=== PATIENT | male | born 1980 | race Asian ===

== ENCOUNTER → 2020-08-19 | Emergency (ER) | payer MEDICAID ==
[~2020-08-19] VITALS: Ht 177.8 cm; Wt 81.6 kg
[~2020-08-19] MED LIST: ACETAMINOPHEN 325 MG TABLET PO ONE; ACETAMINOPHEN ES 500 MG TABLET ONE
--- NOTE | 2020-08-19 17:10 | NUR ---
PT BIB SELF C/O COUGH AND FEVER FOR 1 WEEK. PT IS AAOX4, NOT IN RESPIRATORY DISTRESS, HOOKED TO [employer], KEPT RESTED AND COMFORTABLE. WILL CONTINUE TO MONITOR.
[2020-08-19 17:21] VITALS: BP 134/88
--- NOTE | 2020-08-19 17:38 | NUR ---
BACK TO HIS CAR TO WAIT FOR ISO ROOM, CELL # [phone]
--- NOTE | 2020-08-19 19:00 | NUR ---
COVID SPECIMEN AND INFLUENZA OBTAINED AND SENT TO LAB.
--- NOTE | 2020-08-19 19:07 | NUR ---
ENGINEER AT SITE FOR XRAY.
--- NOTE | 2020-08-21 10:32 | NUR ---
PATIENT CALLED FOR POSITIVE COVID RESULT, INSTRUCTED TO QUARANTINE X14 DAYS.
== END | disposition home or self-care (01) ==
LOC: ER 16:03
DX: U07.1 COVID-19 (principal); R19.7 Diarrhea, unspecified; R03.0 Elevated blood-pressure reading, without diagnosis of hypertension
CPT/HCPCS: 71045; 87804; 99284; C9803; U0003

== ENCOUNTER 2020-11-08 14:32 | Emergency (ER) | payer MEDICAID ==
[~2020-11-08] VITALS: Ht 177.8 cm; Wt 81.6 kg
--- NOTE | 2020-11-08 14:45 | NUR ---
PATIENT SELF PRESENTS TO ED FOR C/O LEFT FLANK PAIN THIS AM - N/V/D. THE PATIENT IS IN ER BED #9. AAO X4. IN ROOM AIR AND DENIES SOB. RESPIRATION REGULAR AND UNLABORED. NO VOMITING AT THIS TIME. WILL CONTINUE TO MONITOR THE PATIENT.
[2020-11-08] MEDS ORDERED: KETOROLAC TROMETHAMINE 15 MG/ML VIAL ONE (14:54)
[2020-11-08] MEDS ORDERED: ONDANSETRON HCL/PF 4 MG/2 ML VIAL ONE (14:55)
[2020-11-08] MEDS ORDERED: MORPHINE SULFATE INJ 4 MG/ML DISP.SYRIN ONE (14:55)
[2020-11-08] MEDS ORDERED: IV NS 0.9% 1,000 ML BAG IV ONE (15:00)
[2020-11-08] MEDS ORDERED: KETOROLAC TROMETHAMINE INJ 30 MG/ML VIAL IV ONE (15:00)
[2020-11-08] MEDS ORDERED: MORPHINE SULFATE INJ 2 MG/ML DISP.SYRIN IV ONE (15:00)
[2020-11-08] MEDS ORDERED: ONDANSETRON HCL/PF 4 MG/2 ML VIAL IVP ONE (15:00)
--- NOTE | 2020-11-08 15:00 | NUR ---
STARTED LAC G 18, BLODD DRAW DONE AND THE SPECIMEN PICKED UP BY PHLEBATOMIST.
[2020-11-08 15:13] LABS: RED BLOOD CELL COUNT(AUTO) 5.04 MIL/uL (4.5-6.0)
--- NOTE | 2020-11-08 15:15 | NUR ---
Patient taken on a gurney to CT.
[2020-11-08 15:18] LABS: BASOPHILS # (AUTO) 0.1 /CMM (0.0-0.2); BASOPHILS % (AUTO) 0.6 % (0.0-2.0); EOSINOPHILS % (AUTO) 0.1 % (0.0-6.0); HEMATOCRIT 46 % (39-51); HEMOGLOBIN 15.4 g/dL (13.5-17.5); LYMPHOCYTES # (AUTO) 0.9 /CMM (0.8-4.8); LYMPHOCYTES % (AUTO) 9.8 % (20.0-44.0); MEAN CORPUSCULAR HGB CONC 34 g/dl (31.0-36.0); MEAN CORPUSCULAR VOLUME 90 fL (80-96); MONOCYTES # (AUTO) 0.4 /CMM (0.1-1.30); MONOCYTES % (AUTO) 3.9 % (2.0-12.0); NEUTROPHILS # (AUTO) 8.1 /CMM (1.8-8.9); NEUTROPHILS % (AUTO) 85.6 % (43.0-81.0); PLATELET COUNT (AUTO) 164 /CMM (150-450); WHITE BLOOD COUNT (AUTO) 9.5 K/uL (4.3-11.0)
[2020-11-08 15:19] LABS: BILIRUBIN,URINE NEGATIVE (NEGATIVE); COLOR,URINE YELLOW (YELLOW); LEUKOCYTE ESTERASE ,URINE NEGATIVE (NEGATIVE); NITRITE, URINE NEGATIVE (NEGATIVE); PH,URINE 5.5 (5.0-8.0); PROTEIN,URINE NEGATIVE (NEGATIVE); UGLUCOSE NEGATIVE (NEGATIVE); UROBILINOGEN,URINE 0.2 EU/dL (0.2)
--- NOTE | 2020-11-08 15:25 | NUR ---
PATIENT REFUSED MORPHINE PAIN MEDICATION.
[2020-11-08 15:26] LABS: BACTERIA,URINE None seen /HPF (None Seen); RBC,URINE 21-50 /HPF (0-2); SQUAMOUS EPITHELIAL CELL,UR 0-2 /HPF (None Seen); WBC,URINE 0-2 /HPF (0-3)
[2020-11-08 15:29] LABS: CALCIUM, SERUM 9.1 mg/dL (8.5-10.1); CREATININE 1.5 mg/dL (0.6-1.3); POTASSIUM 3.8 mmol/L (3.5-5.1)
[2020-11-08 15:34] LABS: ALBUMIN 4.1 g/dL (3.4-5.0); BILIRUBIN,DIRECT 0.2 mg/dL (0.0-0.2); BILIRUBIN,TOTAL 1.2 mg/dL (0.2-1.0)
[2020-11-08] MEDS ORDERED: ONDA4TAB5 PO (15:52)
[2020-11-08] MEDS ORDERED: HYDR-3976 GT (15:52)
[2020-11-08] MEDS ORDERED: IBUP-1957 PO (15:52)
--- NOTE | 2020-11-08 16:20 | NUR ---
Patient is AAO x4. In room air and denies sob. Respiration regular and unlabored. Denies pain. Patient discharged to home in stable condition. Written and verbal after care instructions given. Patient verbalizes understanding of instruction. Patient left the hospital in stable condition.
[2020-11-08 16:21] VITALS: BP 131/74
== END 2020-11-08 16:22 | disposition home or self-care (01) ==
LOC: ER 14:32
DX: N13.2 Hydronephrosis with renal and ureteral calculous obstruction (principal); N17.9 Acute kidney failure, unspecified; Z79.899 Other long term (current) drug therapy
CPT/HCPCS: 36415; 74176; 80048; 80076; 81001; 83690; 85025; 96361; 96374; 96375; 99284; J1885; J2405; J7030; J7040; J2270

== ENCOUNTER 2021-02-22 13:41 | Emergency (ER) | payer MEDICAID ==
[~2021-02-22] VITALS: Ht 177.8 cm; Wt 81.6 kg
[~2021-02-22 13:41] MED LIST changes: -ACETAMINOPHEN 325 MG TABLET PO ONE; -ACETAMINOPHEN ES 500 MG TABLET ONE; +HYDR-3976 GT; +IBUP-1957 PO; +ONDA4TAB5 PO
[2021-02-22 13:49] VITALS: BP 124/74
[2021-02-22] MEDS ORDERED: IBUPROFEN 600 MG TABLET PO ONE (14:30)
[2021-02-22] MEDS ORDERED: IBUPROFEN 600 MG TABLET ONE (14:32)
[2021-02-22] MEDS ORDERED: IBUP-1955 PO (15:15)
--- NOTE | 2021-02-22 15:22 | NUR ---
Patient discharged to home in stable condition. Written and verbal after care instructions given. Patient verbalizes understanding of instruction.
== END 2021-02-22 15:22 | disposition home or self-care (01) ==
LOC: ER 13:45
DX: M25.572 Pain in left ankle and joints of left foot (principal); R60.0 Localized edema; X50.1XXA Overexertion from prolonged static or awkward postures, initial encounter; Y93.66 Activity, soccer; Y92.322 Soccer field as the place of occurrence of the external cause; Y99.8 Other external cause status
CPT/HCPCS: 73610-TC

== ENCOUNTER 2021-07-28 12:08 | Emergency (ER) | payer MEDICAID ==
[~2021-07-28] VITALS: Ht 177.8 cm; Wt 72.6 kg
[~2021-07-28 12:08] MED LIST changes: +IBUP-1955 PO
--- NOTE | 2021-07-28 12:21 | NUR ---
The patient is BIBS for r sided blurring of vision x [address] Denies pain. No apparent deficiencies noted. Attached to the monitor. Will continue to monitor the patient.
[2021-07-28 14:08] VITALS: BP 119/75
--- NOTE | 2021-07-28 14:08 | NUR ---
Patient discharged to home in stable condition. Written and verbal after care instructions given. Patient verbalizes understanding of instruction.
== END 2021-07-28 14:09 | disposition home or self-care (01) ==
LOC: ER 12:14
DX: H53.8 Other visual disturbances (principal)

== ENCOUNTER 2022-02-02 13:21 | Emergency (ER) | payer MEDICAID ==
--- NOTE | 2022-02-02 13:22 | NUR ---
CALLED TO TRIAGE NO ANSWER.
[2022-02-02] MEDS ORDERED: IV NS 0.9% 1,000 ML BAG IV ONE (13:30)
[2022-02-02] MEDS ORDERED: ONDANSETRON HCL/PF 4 MG/2 ML VIAL IVP ONE (13:30)
[2022-02-02] MEDS ORDERED: KETOROLAC TROMETHAMINE INJ 30 MG/ML VIAL IV ONE (13:30)
--- NOTE | 2022-02-02 13:50 | NUR ---
CALLED TO TRIAGE NO ANSWER.
--- NOTE | 2022-02-02 14:09 | NUR ---
CALLED TO TRIAGE NO ANSWER.
== END 2022-02-02 14:10 | disposition home or self-care (01) ==
LOC: ER 13:21
DX: Z53.21 Procedure and treatment not carried out due to patient leaving prior to being seen by health care provider (principal)

== ENCOUNTER 2022-02-21 13:57 | Emergency (ER) | payer MEDICAID ==
[~2022-02-21] VITALS: Ht 177.8 cm; Wt 79.8 kg
--- NOTE | 2022-02-21 14:21 | NUR ---
RECEVED PT 41 YRS MALE C/O LT FLANK PAIN NO N/V AWAKE AND ALERT
--- NOTE | 2022-02-21 14:26 | NUR ---
IV ESTABLISHED R AC 18G. LABS DRAWN AND SENT.
--- NOTE | 2022-02-21 14:44 | NUR ---
WATING TO BE SEEN BY PROVIDER
--- NOTE | 2022-02-21 15:40 | NUR ---
to ct scan
[2022-02-21 16:11] LABS: BASOPHILS % (AUTO) 0.6 % (0.0-2.0); EOSINOPHILS % (AUTO) 1.7 % (0.0-6.0); HEMATOCRIT 42 % (39-51); HEMOGLOBIN 14.4 g/dL (13.5-17.5); LYMPHOCYTES # (AUTO) 2.2 K/uL (0.8-4.8); LYMPHOCYTES % (AUTO) 33.5 % (20.0-44.0); MEAN CORPUSCULAR HGB CONC 34 g/dl (31.0-36.0); MEAN CORPUSCULAR VOLUME 88 fL (80-96); MONOCYTES # (AUTO) 0.4 K/uL (0.1-1.30); MONOCYTES % (AUTO) 5.9 % (2.0-12.0); NEUTROPHILS # (AUTO) 3.8 K/uL (1.8-8.9); NEUTROPHILS % (AUTO) 58.3 % (43.0-81.0); PLATELET COUNT (AUTO) 176 K/uL (150-450); RED BLOOD CELL COUNT(AUTO) 4.75 MIL/uL (4.5-6.0); WHITE BLOOD COUNT (AUTO) 6.5 K/uL (4.3-11.0)
[2022-02-21 17:01] LABS: ALBUMIN 3.9 g/dL (3.4-5.0); BILIRUBIN,DIRECT 0.1 mg/dL (0.0-0.2); BILIRUBIN,TOTAL 0.9 mg/dL (0.2-1.0); CALCIUM, SERUM 8.7 mg/dL (8.5-10.1); CREATININE 1.1 mg/dL (0.6-1.3); POTASSIUM 4.1 mmol/L (3.5-5.1); TOTAL PROTEIN, SERUM 6.8 g/dL (6.4-8.2)
[2022-02-21 17:02] LABS: BILIRUBIN,URINE NEGATIVE (NEGATIVE); COLOR,URINE YELLOW (YELLOW); LEUKOCYTE ESTERASE ,URINE NEGATIVE (NEGATIVE); NITRITE, URINE NEGATIVE (NEGATIVE); PH,URINE 5.5 (5.0-8.0); PROTEIN,URINE NEGATIVE (NEGATIVE); UGLUCOSE NEGATIVE (NEGATIVE); UROBILINOGEN,URINE 0.2 EU/dL (0.2)
[2022-02-21] MEDS ORDERED: IBUP-1955 PO (17:08)
--- NOTE | 2022-02-21 17:48 | NUR ---
wating for lab result no pain noted pt condition stable
--- NOTE | 2022-02-21 18:03 | NUR ---
The patient is alert and oriented x4. In room air and denies SOB. Respiration regular and unlabored. Denies pain. IV removed. Catheter intact and site benign. Pressure and 4x4 applied to site. No bleeding noted.Patient discharged to home in stable condition. Written and verbal after care instructions given. Patient verbalizes understanding of instruction.
[2022-02-21 18:05] VITALS: BP 126/75
== END 2022-02-21 18:06 | disposition home or self-care (01) ==
LOC: ER 14:06
DX: R10.9 Unspecified abdominal pain (principal); Z79.899 Other long term (current) drug therapy
CPT/HCPCS: 36415; 80048-TC; 80076-TC; 85025-TC